=== PATIENT | male | born 1980 | race Caucasian/White ===

== ENCOUNTER 2020-09-02 13:45 | Emergency (ER) | payer MEDICAID ==
[~2020-09-02] VITALS: Ht 167.6 cm; Wt 93.9 kg
[2020-09-02 13:55] VITALS: Ht 167.6 cm; Wt 93.9 kg
[2020-09-02 15:57] VITALS: BP 132/71
== END 2020-09-02 15:57 | disposition home or self-care (01) ==
LOC: ED 13:45
DX: M54.42 Lumbago with sciatica, left side (principal); Z98.890 Other specified postprocedural states
CPT/HCPCS: J1885